=== PATIENT | female | born 1995 | race Caucasian/White ===

== ENCOUNTER 2023-08-02 17:19 | Inpatient (IN) ==
[2023-08-02 18:50] LABS: ABS Lymphocytes 2.9 10^3/uL (1.0-4.8); ABS Monocytes 0.8 10^3/uL (0.0-0.9); ABS Neutrophils 3.7 10^3/uL (1.5-7.6); ABS Nucleated RBC 0.01 10^3/ul; Eosinophil % 0.1 %; Hematocrit 41.2 % (35-45); Hemoglobin 14.1 g/dL (11.5-14.3); Lymphocyte % 39.1 %; Mean Corpuscular Hemoglobin 30.6 pg (27-33); Mean Corpuscular Hgb Conc 34.1 g/dL (31-36); Mean Corpuscular Volume 89.8 fL (80-97); Mean Platelet Volume 8.6 fL (7.5-11.2); Nucleated Red Blood Cells % 0.2 %/100WBC (0.0-0.8); Platelet Count 227 10^3/uL (150-450); Red Blood Count 4.59 10^6/uL (3.63-4.92); Red Cell Distribution Width 12.4 % (12-17); White Blood Count 7.5 10^3/uL (3.8-11.8)
[2023-08-02 18:53] LABS: Urine Appearance Clear; Urine Bilirubin Negative (Negative); Urine Blood Negative (Negative); Urine Color Yellow; Urine Glucose Negative (Negative); Urine Ketones Negative (Negative); Urine Nitrite Negative (Negative); Urine Protein Negative (Negative); Urine Specific Gravity 1.009 (1.002-1.030); Urine Urobilinogen Negative (Negative)
[2023-08-02 19:17] LABS: ALT 21 U/L (7-52); AST 22 U/L (13-39); Albumin 4.2 g/dL (3.2-5.2); Albumin/Globulin Ratio 1.6 (1-3); Alkaline Phosphatase 40 U/L (35-149); Anion Gap 8 mmol/L (2-16); Blood Urea Nitrogen 12 mg/dL (6-24); CO2 Carbon Dioxide 29 mmol/L (22-32); Calcium 9.7 mg/dL (8.6-10.3); Chloride 104 mmol/L (101-111); Creatinine, Serum 0.81 mg/dL (0.51-0.95); Globulin 2.7 g/dL (2-4); Glucose 99 mg/dL (70-100); Potassium 3.6 mmol/L (3.5-5.0); Sodium 141 mmol/L (135-145); Total Bilirubin 0.4 mg/dL (0.2-1.0); Total Protein 6.9 g/dL (6.4-8.9); eGFR CKD-EPI 100.7 (>60)
[2023-08-02 19:22] LABS: HCG Pregnancy < 0.60 mIU/mL
[2023-08-02 19:31] LABS: Acetaminophen < 15 mcg/mL; Alcohol, S < 13 mg/dL (<13); Salicylate < 2.50 mg/dL (<30)
[2023-08-02 19:44] LABS: Urine Benzodiazepine Screen None Detected (None Detect); Urine Cannabinoids Screen None Detected (None Detect); Urine Opiates Screen None Detected (None Detect)
[2023-08-02 19:44] LABS: TSH Ultra Thyroid Stim Horm 1.57 mcIU/mL (0.34-5.60)
[2023-08-02] MEDS ORDERED: Al Hydrox/Mg Hydrox/Simet LIQ 30 ML UDC PO PRN (21:16)
[2023-08-03] MEDS: Vitamin THERAPEUTIC TAB PO SCH (08:52)
[2023-08-04] MEDS ORDERED: Influenza vaccine *QUAD* *2023-24* 0.5 ML SYRINGE IM ONE (09:00)
[2023-08-04] MEDS: Vitamin THERAPEUTIC TAB PO SCH (09:10)
[2023-08-05] MEDS: Vitamin THERAPEUTIC TAB PO SCH (09:52)
[2023-08-06] MEDS: Vitamin THERAPEUTIC TAB PO SCH (08:26)
[2023-08-07] MEDS: Vitamin THERAPEUTIC TAB PO SCH (08:20)
[2023-08-08] MEDS: Vitamin THERAPEUTIC TAB PO SCH (08:21)
[2023-08-08 21:28] LABS: Albumin 4.5 g/dL (3.2-5.2); Albumin/Globulin Ratio 1.7 (1-3); Calcium 9.9 mg/dL (8.6-10.3); Creatinine, Serum 0.86 mg/dL (0.51-0.95); Globulin 2.7 g/dL (2-4); Potassium 3.6 mmol/L (3.5-5.0); Total Bilirubin 0.3 mg/dL (0.2-1.0); Total Protein 7.2 g/dL (6.4-8.9); eGFR CKD-EPI 93.7 (>60)
[2023-08-08 21:41] LABS: Lithium 0.19 mmol/L (0.6-1.2)
[2023-08-09] MEDS: Vitamin THERAPEUTIC TAB PO SCH (08:33)
[2023-08-10 07:53] VITALS: BP 104/62
[2023-08-10] MEDS: Vitamin THERAPEUTIC TAB PO SCH (08:07)
== END 2023-08-10 18:11 | disposition home or self-care (01) | DRG 885 ==
LOC: ED 17:19 → BSU 21:16 → EDHOLD 21:16 → BSU 22:22
PROVIDERS: ADMIT Psychiatry & Neurology Psychiatry; ATTEND Psychiatry & Neurology Psychiatry